=== PATIENT | female | born 1955 | race Caucasian/White ===

== ENCOUNTER → 2018-03-15 11:06 | Outpatient (CLI) | payer OTHER, SELFPAY ==
--- NOTE | 2018-03-15 11:28 | RAD_ITS ---
STUDY: X-RAY - LEFT KNEE REASON FOR EXAM: Female, 62 years old. PAIN TECHNIQUE: 4 view(s) of the knee. COMPARISON: None. FINDINGS: Normal visualized distal femur. Normal visualized proximal tibia and fibula. Normal proximal tibiofibular articulation. There is mild degenerative arthrosis of the medial femorotibial compartment. Normal lateral femorotibial compartment. Normal patellofemoral articulation. The soft tissue structures are unremarkable. RAD/Knee 4 or More Views IMPRESSION: There is mild degenerative arthrosis of the medial femorotibial compartment. Electronically Signed: Chaitanya Hunt MD at 17:21 EDT , Service support ,
--- NOTE | 2018-03-15 11:33 | RAD_ITS ---
STUDY: X-RAY - RIGHT KNEE REASON FOR EXAM: Female, 62 years old. PAIN TECHNIQUE: 4 view(s) of the knee. COMPARISON: None. FINDINGS: Normal visualized distal femur. Normal visualized proximal tibia and fibula. Normal proximal tibiofibular articulation. There is mild degenerative arthrosis of the medial femorotibial compartment. There is mild degenerative arthrosis of the lateral femorotibial compartment. Normal patellofemoral articulation. The soft tissue structures are unremarkable. RAD/Knee 4 or More Views IMPRESSION: Degenerative arthrosis. Electronically Signed: Chaitanya Hunt MD at 17:22 EDT , Service support ,
[2018-03-15 12:19] LABS: Hemoglobin A1c 9.2 % (4.2-6.3)
== END ==
PROVIDERS: Family Provider Family Medicine; PCP Family Medicine; Visit Provider Family Medicine
DX: M25.561 Pain in right knee (principal); E11.9 Type 2 diabetes mellitus without complications
CPT/HCPCS: 36415; 73564; 83036

== ENCOUNTER 2018-07-30 17:35 | Emergency (ER) | payer OTHER, SELFPAY ==
[2018-07-30 17:36] VITALS: BP 163/92; PULSE 82; RESP 16; TEMP 36.3; O2SAT 94; BMI 39.3
--- NOTE | 2018-07-30 18:34 | ED.VISSUMM ---
- ER Visit Summary Date of Service: 07/30/18 Chief Complaint: Neck pain History of Present Illness: The patient is a 62 F with a 3 week history of neck pain. Patient points along the path of the sternocleidomastoid muscle bilaterally. She does note decreased range of motion secondary to pain. Pain does not radiate down her arms. She has had some mild nausea and dizziness today, however her family has recently been ill with a GI bug. Patient was reportedly seen by her primary care physician a couple weeks ago and mentioned that her neck was bothering her, but it was not addressed. Physical Examination: Blood pressure is 163/92, otherwise vitals normal. Patient sitting upright in bed no acute distress. Head neck examination grossly unremarkable. She does have mild reproducible tenderness along the sternocleidomastoid muscle bilaterally. There is no significant cervical lymphadenopathy. There is no meningismus. Heart is regular rate and rhythm. Lung sounds are clear. Abdomen is soft nontender. Neuro exam is normal. Test Results: [] Emergency Department Course and Treatment: Patient is currently on naproxen. We will add Flexeril as a muscle relaxer which the patient has had in the past. Daughter questions need for evaluation of the blood vessels. I advised the best test for this would be an ultrasound which can be ordered by her primary care physician. Typically stenosis of the vessels would not cause pain and patient does have reproducible tenderness along the sternocleidomastoid muscle. Treatment Plan: [] Disposition: Discharge Impression: Myalgias secondary to sternocleidomastoid spasm This note was generated with [employer] dictation software. It may contain incorrect words, spelling, and punctuation that were not noted in review of the chart prior to signing ED Disposition - Plan for ED Patient: Chief Complaint: Other, Pain/Inj Referrals: Sanjana Wolfe [Primary Care Provider] -
--- NOTE | 2018-07-30 18:36 | ED.DEP ---
ED Disposition - Plan for ED Patient: Disposition: Home or Assisted Living Chief Complaint: Other, Pain/Inj Instructions: ED Spasm Muscle Prescriptions: Cyclobenzaprine [Flexeril] 10 mg PO TID PRN #20 tablet PRN Reason: Muscle Spasm Referrals: Sanjana Wolfe [Primary Care Provider] - As soon as possible
[2018-07-30 18:39] VITALS: PULSE 87; RESP 16; O2SAT 98
== END 2018-07-30 18:46 | disposition home or self-care (01) ==
PROVIDERS: Emergency Provider Emergency Medicine; Family Provider Family Medicine; PCP Family Medicine
DX: M62.838 Other muscle spasm (principal); I10 Essential (primary) hypertension; E11.9 Type 2 diabetes mellitus without complications; Z72.0 Tobacco use; Z85.51 Personal history of malignant neoplasm of bladder
CPT/HCPCS: 99283

== ENCOUNTER 2019-04-20 13:06 | Emergency (ER) | payer MEDICARE, SELFPAY ==
[2019-04-20 13:08] VITALS: BP 141/68; PULSE 92; RESP 17; TEMP 36.6; O2SAT 95
[2019-04-20 13:09] VITALS: BP 141/68; PULSE 92; RESP 17; TEMP 36.6; O2SAT 95; BMI 37.3
--- NOTE | 2019-04-20 13:34 | RAD_ITS ---
STUDY: X-RAY - RIGHT FOOT CLINICAL: Female, 63 years old. Right foot pain, redness of the fifth toe TECHNIQUE: 3 view(s) of the foot. COMPARISON: None. FINDINGS: There is diffuse osteopenia. Normal visualized subtalar, talonavicular, calcaneocuboid, tarsal and tarsometatarsal articulations. Normal metatarsi. Normal metatarsophalangeal joint of the great toe. Normal tibial and fibular sesamoid bones. Normal interphalangeal joint of the great toe. Normal phalanges of the great toe. Normal second through fifth metatarsophalangeal joints. Normal interphalangeal joints and phalanges of the lesser toes. The soft tissue structures are unremarkable. RAD/Foot min 3 Views IMPRESSION: 1. No fracture or malalignment. No destructive bony process. 2. Osteopenia. Electronically Signed: Dony Rios MD at 14:08 EDT , Service support ,
[2019-04-20 14:01] LABS: Absolute Lymphocyte Count 2.31 X10^3/ul (0.83-4.51); Absolute Neutrophil Count 7.5 X10^3/uL (2.0-7.7); Basophil# 0.05 X10^3/uL; Basophil% 0.5 % (0-1); Eosinophil# 0.18 X10^3/uL; Eosinophils% 1.7 % (0-5); Hematocrit 45.9 % (37-47); Hemoglobin 15.1 g/dl (12.0-15.0); Lymphocyte # 2.31 X10^3/ul (4.0); Lymphocyte % 21.6 % (19-41); Mean Corp Hgb Conc 32.9 g/gl (32-36); Mean Corpuscular Hgb 27.4 pg (27.0-32.0); Mean Corpuscular Volume 83.3 fL (81-99); Mean Platelet Vol. 12.7 fl (6.2-12.0); Monocyte# 0.63 X10^3/uL; Monocyte% 5.9 % (0-10); Neutrophil # 7.48 X10^3/uL (2.7-7.7); Neutrophil % 70.1 % (47-70); POSITIVE COUNT NO; POSITIVE DIFFERENTIAL NO; POSITIVE MORPHOLOGY YES; Platelet Count 182 K/mm3 (150-450); RBC Distribution Width CV 14.8 % (11.6-14.6); RBC Distribution Width SD 45.1 fl (35.1-43.9); Red Blood Count 5.51 M/mm3 (4.2-5.4); White Blood Count 10.7 K/mm3 (4.4-11.0)
[2019-04-20 14:02] LABS: Differential Indicated SCAN CRITERIA MET
[2019-04-20 14:04] LABS: Prothrombin Time (Protime)PT. 12.8 SECONDS (11.7-14.9)
[2019-04-20 14:05] LABS: Partial Thromboplast Time 26.2 Seconds (24.1-36.2)
[2019-04-20 14:15] LABS: Anion Gap 8 (5-15); BUN 19 mg/dL (7-18); BUN/Creat Ratio 21.5 RATIO (10-20); Chloride 103 mmol/L (98-107); Creatinine, Serum 0.88 mg/dL (0.55-1.02); EST Glomerular Filtration Rate 68 mL/min (>60); Est Glom Filt Rate - Afr Amer 83 mL/min (>60); Estimated Creatinine Clearance 68.92 ml/min; Glucose 466 mg/dL (74-106); Potassium 4.9 mmol/L (3.5-5.1); Sodium Level 135 mmol/L (136-145)
--- NOTE | 2019-04-20 14:28 | ED.VISSUMM ---
- ER Visit Summary Date of Service: 04/20/19 Chief Complaint: Pain and bruising to her right fifth toe History of Present Illness: The patient is a 63 F who presents with pain and bruising to her right fifth toe that began 1-1/2 weeks ago. Patient states the pain is gradually gotten worse. Patient describes the pain as burning and throbbing. Patient states the pain is worse with ambulation and with palpation. Patient states nothing seems to help with the pain. Patient has been taking qtbz-zly-kwkvyda anti-inflammatory medicine with no improvement. Patient denies any paresthesias or weakness. Physical Examination: Vital signs are stable. Patient is afebrile. Patient is in no acute distress. Musculoskeletal exam reveals tenderness and ecchymosis of the right fifth toe. There is also some ecchymotic discoloration over the distal phalanges of the second through fourth toes. There is no deformity noted. Capillary refill is less than 2 seconds in all digits. Pedal pulses are equal bilaterally. Sensation is intact to light touch in all digits. There is no calf tenderness noted. Test Results: X-rays of the right foot were obtained. There is no acute fracture. There is no destructive bony process noted. CBC was normal. Basic metabolic profile showed an elevated glucose of 466. The remaining electrolytes were normal. Anion gap was normal. INR was 1.0. PTT was 26.2. Emergency Department Course and Treatment: Patient was instructed to use warm compresses to the area. Patient was advised that this could be microvascular changes causing decreased circulation in her foot. There is no arterial occlusion at this time. Patient was instructed to follow-up with her primary care physician in 3 to 5 days. Patient was given a prescription for a short course of [place]. Patient was instructed to use compression hose. Patient understood and was agreeable with the plan. All questions were answered. Disposition: Discharge home Impression: Right foot pain This note was generated with [employer] dictation software. It may contain incorrect words, spelling, and punctuation that were not noted in review of the chart prior to signing ED Disposition - Plan for ED Patient: Disposition: Home or Assisted Living Diagnosis: Right foot pain Instructions: Raynaud's Disease Prescriptions: Hydrocodone Bitart/Apap 5-325 [Coin 5MG-325MG] 1 tab PO Q6H PRN PRN 3 Days #10 tab PRN Reason: Pain Referrals: Sanjana Wolfe [Primary Care Provider] - 3-5 Days
[2019-04-20 14:31] LABS: Platelet Estimate ADEQUATE (ADEQ); Platelet Morphology LARGE
--- NOTE | 2019-04-20 14:33 | ED.DCSUM_ITS ---
- ER Visit Summary Date of Service: 04/20/19 Chief Complaint: Pain and bruising to her right fifth toe History of Present Illness: The patient is a 63 F who presents with pain and bruising to her right fifth toe that began 1-1/2 weeks ago. Patient states the pain is gradually gotten worse. Patient describes the pain as burning and throbbing. Patient states the pain is worse with ambulation and with palpation. Patient states nothing seems to help with the pain. Patient has been taking kfya-rpy-jbrzlfy anti-inflammatory medicine with no improvement. Patient denies any paresthesias or weakness. Physical Examination: Vital signs are stable. Patient is afebrile. Patient is in no acute distress. Musculoskeletal exam reveals tenderness and ecchymosis of the right fifth toe. There is also some ecchymotic discoloration over the distal phalanges of the second through fourth toes. There is no deformity noted. Capillary refill is less than 2 seconds in all digits. Pedal pulses are equal bilaterally. Sensation is intact to light touch in all digits. There is no calf tenderness noted. Test Results: X-rays of the right foot were obtained. There is no acute fracture. There is no destructive bony process noted. CBC was normal. Basic metabolic profile showed an elevated glucose of 466. The remaining electrolytes were normal. Anion gap was normal. INR was 1.0. PTT was 26.2. Emergency Department Course and Treatment: Patient was instructed to use warm compresses to the area. Patient was advised that this could be microvascular changes causing decreased circulation in her foot. There is no arterial occlusion at this time. Patient was instructed to follow-up with her primary care physician in 3 to 5 days. Patient was given a prescription for a short course of [place]. Patient was instructed to use compression hose. Patient understood and was agreeable with the plan. All questions were answered. Disposition: Discharge home Impression: Right foot pain This note was generated with [employer] dictation software. It may contain incorrect words, spelling, and punctuation that were not noted in review of the chart prior to signing ED Disposition - Plan for ED Patient: Disposition: Home or Assisted Living Diagnosis: Right foot pain Instructions: Raynaud's Disease Prescriptions: Hydrocodone Bitart/Apap 5-325 [[place] 5MG-325MG] 1 tab PO Q6H PRN PRN 3 Days #10 tab PRN Reason: Pain Referrals: Sanjana Wolfe [Primary Care Provider] - 3-5 Days
[2019-04-20] MEDS: Insulin Lispro 100 UNIT/ML INSULN.PEN 10 UNIT SC (14:39)
[2019-04-20 15:36] VITALS: BP 135/76; PULSE 89; RESP 16; O2SAT 96
[2019-04-20 15:36] LABS: Bedside Glucose 359 mg/dL (70-110)
== END 2019-04-20 15:51 | disposition home or self-care (01) ==
PROVIDERS: Emergency Provider Emergency Medicine; Family Provider Family Medicine; PCP Family Medicine
DX: M79.671 Pain in right foot (principal); E11.65 Type 2 diabetes mellitus with hyperglycemia; I10 Essential (primary) hypertension; Z72.0 Tobacco use; Z87.01 Personal history of pneumonia (recurrent)
CPT/HCPCS: 73630; 80048; 82962; 85025; 85610; 85730; 99283

== ENCOUNTER → 2020-06-02 09:00 | Outpatient (REF) | payer MEDICARE, SELFPAY | LOC: OLS.ACW200 09:00 | PROVIDERS: PCP Family Medicine; Referring Provider Family Medicine; Visit Provider Family Medicine | DX: I63.40 Cerebral infarction due to embolism of unspecified cerebral artery (principal); I69.320 Aphasia following cerebral infarction; I69.354 Hemiplegia and hemiparesis following cerebral infarction affecting left non-dominant side; Z11.59 Encounter for screening for other viral diseases | CPT/HCPCS: 87635; U0003 ==

== ENCOUNTER 2020-08-18 20:52 | Emergency (ER) | payer MEDICARE, SELFPAY ==
[2020-08-18 20:53] VITALS: BP 175/76; PULSE 73; RESP 22; TEMP 36.8; O2SAT 96; BMI 42.4
[2020-08-18 20:56] VITALS: BP 175/76; PULSE 75; RESP 21; TEMP 36.8; O2SAT 96
--- NOTE | 2020-08-18 21:30 | CT_ITS ---
STUDY: CTA NECK WITH CONTRAST REASON FOR EXAM: Female, 64 years old. RT SIDED NECK PAIN AFTER COUGHING TONIGHT,SORE THROAT,RECENT POST-OP RT CAROTID STENT -- HX:HTN,DIABETES,BLADDER CANCER,CVA CAROTID STENOSIS RADIATION DOSAGE (If Supplied By Facility): CTDIvol = ( 29.06 ) mGy, DLP = ( 633.15 ) mGycm TECHNIQUE: CT angiography with multi-detector data acquisition was performed from the aortic arch to the skull base following intravenous administration of IV 100mL Isovue-370. MIP images were reconstructed from the axial data set. Post-processing of the angiographic images was performed, with multiplanar reformation and 3D reconstruction. Individualized dose optimization techniques were used for this CT. COMPARISON: None. FINDINGS: AORTIC ARCH: Mildly calcified aortic arch. Mild calcifications at the origins of the brachiocephalic, left common carotid, and left subclavian arteries. RIGHT CAROTID ARTERIES: Normal right common carotid artery (CCA). Normal right common carotid bulb. Normal origin of the right internal carotid (ICA) artery without a hemodynamically significant stenosis. Normal visualized cervical portion of the right internal carotid artery. Moderate luminal narrowing at the cavernous portion the right internal carotid artery. Mild calcifications at the origin of the right external carotid artery (ECA). LEFT CAROTID ARTERIES: Normal left common carotid artery (CCA). Atherosclerotic calcifications at the left common carotid bulb with moderate luminal narrowing. Mild calcifications at the origin of the left internal carotid (ICA) artery without a hemodynamically significant stenosis. Normal visualized cervical portion of the left internal carotid artery. Mild calcifications at the origin of the left external carotid artery (ECA). VERTEBRAL ARTERIES: Mild atherosclerotic calcifications of the bilateral vertebral arteries mild luminal narrowing. Moderate luminal narrowing is noted of the intracranial segment of the vertebral arteries. Right maxillary and ethmoid sinus disease. Mild subcutaneous edema is noted within the right side of the neck CT/CTA Neck W/WO Contrast IMPRESSION: Atherosclerotic calcifications as noted bilateral cervical carotid and vertebral arteries. No evidence of arterial dissection. Electronically Signed: Kulwinder Lara DO at 23:14 EDT Tel [phone], Service support ,
[2020-08-18 21:53] LABS: Absolute Lymphocyte Count 2.07 X10^3/uL (0.83-4.51); Absolute Neutrophil Count 5.5 X10^3/uL (2.0-7.7); Basophil# 0.05 X10^3/uL; Basophil% 0.6 % (0-1); Eosinophil# 0.53 X10^3/uL; Hematocrit 31.4 % (37-47); Hemoglobin 9.8 g/dL (12.0-15.0); Lymphocyte # 2.07 X10^3/ul (4.0); Lymphocyte % 23.3 % (19-41); Mean Corp Hgb Conc 31.2 g/dL (32-36); Mean Corpuscular Hgb 28.9 pg (27.0-32.0); Mean Corpuscular Volume 92.6 fL (81-99); Mean Platelet Vol. 10.6 fl (6.2-12.0); Monocyte# 0.71 X10^3/uL; NRBC Flagged by Analyzer 0 % (0-5); Neutrophil # 5.47 X10^3/uL (2.7-7.7); Neutrophil % 61.5 % (47-70); Platelet Count 360 K/mm3 (150-450); RBC Distribution Width CV 14.8 % (11.6-14.6); Red Blood Count 3.39 M/mm3 (4.2-5.4); White Blood Count 8.9 K/mm3 (4.4-11.0)
[2020-08-18 22:11] LABS: ALB/GLOB Ratio 0.8 RATIO (0.9-2.4); AST(SGOT) 13 U/L (15-37); Alanine Aminotransfer ALT/SGPT 19 U/L (13-56); Albumin, Serum 2.8 g/dL (3.2-5.0); Alkaline Phosphatase 73 U/L (45-117); Anion Gap 1 (5-15); BUN 11 mg/dL (7-18); BUN/Creat Ratio 17.7 RATIO (10-20); Calcium,Total 9.3 mg/dL (8.5-10.1); Chloride 101 mmol/L (98-107); Creatinine, Serum 0.62 mg/dL (0.55-1.02); EST Glomerular Filtration Rate 102 mL/min (>60); Est Glom Filt Rate - Afr Amer 123 mL/min (>60); Estimated Creatinine Clearance 63.86 ml/min; Globulin 3.7 g/dL (2.2-4.2); Glucose 224 mg/dL (74-106); Potassium 4.7 mmol/L (3.5-5.1); Protein, Total 6.5 g/dL (6.4-8.2); Sodium Level 135 mmol/L (136-145)
[2020-08-18 23:08] VITALS: PULSE 86; RESP 16; O2SAT 96
--- NOTE | 2020-08-18 23:38 | ED.DCSUM_ITS ---
History of Present Illness Chief Complaint: Other, Pain/Inj Informant: Patient Narrative: 64-year-old female with past medical history of hypertension, oxygen dependent COPD presents with concern for right neck tingling and swelling. States that she had CEA approximately 3 days ago. Concerned because she began having swelling in her neck. States that she has been persistently coughing. Denies any trauma or fall. States that her cough is chronic in nature secondary to her COPD. Past Medical History - Allergies and Home Meds Allergies/Adverse Reactions: Allergies codeine Adverse Reaction (Verified 08/18/20 20:57) Nausea Primary Care Physician: Sanjana Wolfe DO [Primary Care Provider] - Past Medical History: - - HTN, COPD Surgical History: - - CEA Lives: Alone Smoking Status: Former smoker Alcohol: None Drugs: None Review of Systems General: Denies: Chills, Fever, Sweats Eyes: Denies: Visual changes - bilaterally, Diplopia ENT: Denies: Rhinorrhea, Sore throat Cardiovascular: Denies: Chest pain, Palpitations Respiratory: Reports: Cough. Denies: Dyspnea, Dyspnea on exertion Gastrointestinal: Denies: Abdominal pain, Nausea, Vomiting, Diarrhea, Melena, Hematochezia Genitourinary: Denies: Dysuria, Hematuria, Frequency Musculoskeletal: Reports: Neck pain. Denies: Back pain, Extremity Pain Skin: Denies: Rash, Wounds Neurological: Denies: Headache, Weakness, Numbness Physical Exam Vital Signs/Narrative: Vital Signs Temp Pulse Resp BP Pulse Ox 08/18/20 23:08 86 16 96 08/18/20 20:56 98.2 F 75 21 H 175/76 H 96 08/18/20 20:53 98.2 F 73 22 H 175/76 H 96 Inital Vital Signs reviewed: Yes General: Well nourished, Well developed, No Acute Distress Head: Normocephalic, Atraumatic Eyes: Perrl, EOMI ENT: Moist mucous membranes, No rhinorrhea Neck: Supple, Nontender, - - Well healing right neck incision. No significant swelling. Cardiovascular: Regular rate, Regular rhythm, No murmurs Respiratory: No distress, CTA bilaterally, Chest nontender Abdomen: Soft, Nontender, Nondistended, Normal bowel sounds Back: Nontender, Normal Inspection Extremities: Nontender, No edema Skin: Normal color, No rash Neurological: Alert, Oriented x3, Cranial nerves II-XII grossly intact, Normal Strength, Normal Sensation Psychological: Normal affect, Normal Mood Diagnostic/Tx/Re-eval Clinical Impression(s) from Imaging Studies Neck CTA 08/18/20 21:30 IMPRESSION: Atherosclerotic calcifications as noted bilateral cervical carotid and vertebral arteries. No evidence of arterial dissection. Electronically Signed: Kulwinder Lara DO at 23:14 EDT Tel [phone], Service support , Laboratory Data 08/18/20 08/18/20 21:47 21:47 WBC 8.9 RBC 3.39 L Hgb 9.8 L Hct 31.4 L MCV 92.6 MCH 28.9 MCHC 31.2 L RDW Std Deviation 50.0 H RDW Coeff of [place] 14.8 H Plt Count 360 MPV 10.6 Immature Gran % (Auto) 0.600 Neut % (Auto) 61.5 Lymph % (Auto) 23.3 [place] % (Auto) 8.0 Eos % (Auto) 6.0 H Baso % (Auto) 0.6 Absolute Neuts (auto) 5.5 Absolute Lymphs (auto) 2.07 Nucleated RBC % 0 Sodium 135 L Potassium 4.7 Chloride 101 Carbon Dioxide 33.0 H Anion Gap 1 L BUN 11 Creatinine 0.62 Estim Creat Clear Calc 63.86 Est GFR (MDRD) Af Amer 123 Est GFR (MDRD) Non-Af 102 BUN/Creatinine Ratio 17.7 Glucose 224 H Calcium 9.3 Total Bilirubin 0.20 AST 13 L ALT 19 Alkaline Phosphatase 73 Total Protein 6.5 Albumin 2.8 L Globulin 3.7 Albumin/Globulin Ratio 0.8 L - Medical Decision Making Patient appears well nontoxic. CTA negative. Patient's tingling likely secondary to superficial nerve disruption. Patient phonating normally. Cough is chronic. Patient will be given codeine cough syrup for her cough. Advised to follow-up with surgeon. Also advised that she does have an anemia. This is likely secondary to her recent surgery. Advised to follow-up with primary care for repeat CBC within 1 week. Advised to return for new or worsening symptoms. Patient agreeable and discharged home in stable condition. Impression: 1. Neck pain 2. Chronic cough ED Disposition - Plan for ED Patient: Disposition: Home or Assisted Living Instructions: Postsurgical Coughing, ED Cough Chronic Uncertain Cause Adult Prescriptions: Codeine Phosphate/Guaifenesin [Codeine-Guaifen 10-100 mg/5 ml] 10 ml PO Q6H PRN PRN #120 liquid PRN Reason: Cough Prescription Printed Ondansetron [Zofran Odt] 4 mg PO Q8H PRN PRN #10 tab PRN Reason: Nausea Prescription Printed Referrals: Sanjana Wolfe DO [Primary Care Provider] -
[2020-08-19] MEDS: Ondansetron ODT 4 MG Tablet PO (00:05)
[2020-08-19 00:07] VITALS: BP 129/41; PULSE 70; RESP 18; O2SAT 96
== END 2020-08-19 00:30 | disposition home or self-care (01) ==
PROVIDERS: Emergency Provider Emergency Medicine; PCP Family Medicine
DX: M54.2 Cervicalgia (principal); R05 Cough; J44.9 Chronic obstructive pulmonary disease, unspecified; I10 Essential (primary) hypertension; Z99.81 Dependence on supplemental oxygen; Z79.01 Long term (current) use of anticoagulants; Z79.02 Long term (current) use of antithrombotics/antiplatelets; Z79.82 Long term (current) use of aspirin; Z79.4 Long term (current) use of insulin; Z79.899 Other long term (current) drug therapy; Z87.891 Personal history of nicotine dependence
CPT/HCPCS: 70498; 80053; 85025; 99285; Q9967; A4216

== ENCOUNTER → 2021-05-24 | Outpatient (REF) | payer MEDICARE, SELFPAY ==
[2021-05-24 07:03] LABS: Absolute Lymphocyte Count 1.84 X10^3/uL (0.83-4.51); Absolute Neutrophil Count 4.9 X10^3/uL (2.0-7.7); Basophil# 0.06 X10^3/uL; Basophil% 0.7 % (0-1); Eosinophil# 0.68 X10^3/uL; Eosinophils% 8.3 % (0-5); Hemoglobin 13.1 g/dL (12.0-15.0); Lymphocyte # 1.84 X10^3/ul (0.83-4.51); Lymphocyte % 22.5 % (19-41); Mean Corp Hgb Conc 29.1 g/dL (32-36); Mean Corpuscular Hgb 25.6 pg (27.0-32.0); Mean Corpuscular Volume 87.9 fL (81-99); Monocyte# 0.67 X10^3/uL; Monocyte% 8.2 % (0-10); NRBC Flagged by Analyzer 0 % (0-5); Neutrophil # 4.91 X10^3/uL (2.7-7.7); Neutrophil % 60.1 % (47-70); POSITIVE MORPHOLOGY YES; Platelet Count 200 K/mm3 (150-450); RBC Distribution Width CV 27.9 % (11.6-14.6); RBC Distribution Width SD 83.9 fl (35.1-43.9); Red Blood Count 5.12 M/mm3 (4.2-5.4); White Blood Count 8.2 K/mm3 (4.4-11.0)
[2021-05-24 07:05] LABS: Differential Indicated SCAN CRITERIA MET
[2021-05-24 07:25] LABS: Differential Comment SCANNED
[2021-05-24 07:26] LABS: Anisocytosis 2+; Microcytosis 1+
[2021-05-25 08:49] LABS: Anion Gap 1 (5-15); BUN 12 mg/dL (7-18); BUN/Creat Ratio 19.9 RATIO (10-20); Calcium,Total 9.6 mg/dL (8.5-10.1); Chloride 99 mmol/L (98-107); EST Glomerular Filtration Rate 105 mL/min (>60); Est Glom Filt Rate - Afr Amer 128 mL/min (>60); Glucose 121 mg/dL (74-106); Potassium 4.8 mmol/L (3.5-5.1); Sodium Level 135 mmol/L (136-145)
== END | disposition home or self-care (01) ==
LOC: OLS.SW500 04:00
PROVIDERS: PCP Family Medicine; Visit Provider Family Medicine
DX: E11.9 Type 2 diabetes mellitus without complications (principal); E78.5 Hyperlipidemia, unspecified
CPT/HCPCS: 36415; 80048; 85025